=== PATIENT | female | born 1960 | race Caucasian/White ===

== ENCOUNTER → 2018-09-02 | Outpatient (CLI) | payer MEDICARE, OTHER ==
--- NOTE | 2018-09-02 10:17 | RAD ---
EXAM: Right hand, 2 views. HISTORY: Blunt trauma. COMPARISON: None. FINDINGS: 2 views of the right hand are obtained. There is no fracture, dislocation or subluxation. There is no radiodense foreign body. There is minimal spurring at the base of the first metacarpal. IMPRESSION: No acute osseous finding. Electronically signed by: Elizabeth Pack MD (09/02/2018 10:14 AM) [id number]
== END | disposition home or self-care (01) ==
LOC: RAD 09:50
PROVIDERS: ATTEND Registered Nurse
DX: S69.90XA Unspecified injury of unspecified wrist, hand and finger(s), initial encounter (principal); X58.XXXA Exposure to other specified factors, initial encounter; Y93.89 Activity, other specified; Y92.89 Other specified places as the place of occurrence of the external cause; Y99.8 Other external cause status
CPT/HCPCS: 73120

== ENCOUNTER → 2018-11-07 | Outpatient (CLI) | payer MEDICARE, OTHER ==
[2018-11-07] MEDS: IOHEXOL 300 MG/ML 75 ML VIAL. IV ONE (08:40)
--- NOTE | 2018-11-07 12:59 | RAD ---
CT CHEST W/CONTRAST Indication: Chest pain, dysphagia Technique: Postcontrast CT imaging was performed of the chest, multiplanar reconstruction images submitted. One or more of the following individualized dose reduction techniques were utilized for this examination: 1. Automated exposure control 2. Adjustment of the mA and/or kV according to patient size 3. Use of iterative reconstruction technique. Comparison: None Findings: There is very small sliding hiatal hernia, nonspecific mild wall thickening of involved segment. Esophagus is not significantly dilated. There are some small mediastinal and axillary nodes, no significantly enlarged nodes identified of the chest. There is no pericardial or pleural fluid, pneumothorax, significant infiltrate. Major airways are patent. 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 There is mild smooth thoracic dextroscoliosis. Heterogeneity of the spleen is probably due to differential in perfusion during exam. IMPRESSION: 1. There is very small sliding hiatal hernia, nonspecific mild wall thickening of distal segment which could be due to mild esophagitis although nonspecific. Electronically signed by: Ramos Mark MD (11/07/2018 12:56 PM) [id number]
== END | disposition home or self-care (01) ==
LOC: CT 08:16
PROVIDERS: ATTEND Internal Medicine Gastroenterology
DX: K44.9 Diaphragmatic hernia without obstruction or gangrene (principal); J98.59 Other diseases of mediastinum, not elsewhere classified; M51.34 Other intervertebral disc degeneration, thoracic region; M47.814 Spondylosis without myelopathy or radiculopathy, thoracic region
CPT/HCPCS: 71260; Q9967

== ENCOUNTER → 2019-01-06 | Outpatient (CLI) | payer MEDICARE, OTHER ==
--- NOTE | 2019-01-21 09:56 | RAD ---
DATE: 01/06/2019 1:00 PM EXAM: MAMMO RADHA SCREENING BILATERAL HISTORY: routine screening evaluation. COMPARISON: 01/06/2019, 08/17/2016 Bilateral CC and MLO views of the breasts were performed. Bilateral breast tomosynthesis was performed in CC and MLO projections. This study was interpreted with the benefit of Computerized Aided Detection (CAD). FINDINGS: Breast Density: DENSE The breast Parenchyma is dense, which could reduce the sensitivity of mammography. Breast parenchyma level density D. Benign calcifications are present. Multiple rounded nodular densities in the lower breasts bilaterally are seen. No suspicious microcalcifications or architectural distortion is present in either breast. The visualized axillae are unremarkable. IMPRESSION: Bilateral breast masses as above, findings for which additional imaging is advised. BI-RADS CATEGORY: 0 INCOMPLETE: NEEDS ADDITIONAL IMAGING EVALUATION AND/OR PRIOR MAMMOGRAMS FOR COMPARISON. RECOMMENDED FOLLOW-UP: ADD ADDITIONAL IMAGING. Spot compression and ultrasound of both breasts is recommended PQRS compliance statement: Patient information was entered into a reminder system with a target due date for the next mammogram. Mammography is a sensitive method for finding small breast cancers, but it does not detect them all and is not a substitute for careful clinical examination. A negative mammogram does not negate a clinically suspicious finding and should not result in delay in biopsying a clinically suspicious abnormality. "Our facility is accredited by the [employer] Mammography [employer]."
== END | disposition home or self-care (01) ==
LOC: MAMMO 12:51
PROVIDERS: ATTEND Registered Nurse
DX: Z12.31 Encounter for screening mammogram for malignant neoplasm of breast (principal); N63.10 Unspecified lump in the right breast, unspecified quadrant; N63.20 Unspecified lump in the left breast, unspecified quadrant
CPT/HCPCS: 77063; 77067

== ENCOUNTER → 2019-02-07 | Outpatient (CLI) | payer MEDICARE, OTHER ==
--- NOTE | 2019-02-07 14:32 | RAD ---
Examination: DIGITAL DIAGNOSTIC BILATERAL, BREAST RIGHT HISTORY: Abnormal mammogram. COMPARISON: 12/30/2018 screening mammogram BREAST PARENCHYMAL DENSITY: Scattered fibroid glandular densities. FINDINGS: Spot compression imaging bilaterally was performed at the lower breast region. There is no persistent asymmetry involving the left breast. Persistence of masses noted on spot compression imaging of the right lower breast. Ultrasound imaging of the right lower breast was performed. At the 6:00 region 2 cm from nipple, there is a cyst measuring up to 0.4 cm diameter. At the 7:00 region 3.5 cm from nipple, there is a 1 cm x 0.9 cm x 0.6 cm cyst present. Cluster of cysts or septated cyst is present at the proximal region 4 cm from nipple measuring 0.8 cm x 0.6 cm x 0.5 cm tall. There is no flow identified to involve the cysts. IMPRESSION: BI-RADS Category 3-probably benign. Six-month follow-up ultrasound exam is recommended to assess. Note is made that dense breast parenchyma limits the sensitivity of mammography. Mammography is a sensitive method for finding small breast cancers, but it does not detect them all and is not a substitute for careful clinical examination. A negative mammogram does not negate a clinically suspicious finding and should not result in delay in biopsying a clinically suspicious abnormality. PQRS compliance statement - Patient information was entered into a reminder system with a target due date for the next mammogram. "Our facility is accreditied by the [employer] Mammography Program." Electronically signed by: Javy Pinon MD (02/07/2019 2:29 PM) [facility]
== END | disposition home or self-care (01) ==
LOC: MAMMO 13:15
PROVIDERS: ATTEND Registered Nurse
DX: N60.01 Solitary cyst of right breast (principal)
CPT/HCPCS: 76641; 77066

== ENCOUNTER → 2019-06-20 | Outpatient (CLI) | payer MEDICARE, OTHER ==
[~2019-06-20] VITALS: Ht 165.1 cm; Wt 57.5 kg
[~2019-06-20] MED LIST: NORMAL SALINE IV ONE; SINCALIDE 1.15 MCG in IV NORMAL SALINE 50ML 30 ML IV ONE; SINCALIDE IV ONE
--- NOTE | 2019-06-20 09:27 | RAD ---
Examination: ABDOMEN LTD History: Right upper quadrant pain Comparison/Correlation: 05/30/2019 CT abdomen and pelvis with contrast Findings: Limited right upper quadrant ultrasound exam was performed. Hepatic echotexture is normal. Gallbladder is unremarkable. Liver length is within normal limits. Portal venous flow is unremarkable. Common bile duct unremarkable. No biliary dilatation. Right kidney measures 10 cm longitudinal. No right hydronephrosis. Normal renal contour and echotexture. Portal vein is normal. Distal pancreas is obscured by bowel gas. Inferior vena cava is unremarkable. No right upper quadrant ascites. Impression: Normal right upper quadrant ultrasound exam. Electronically signed by: Javy Pinon MD (06/20/2019 9:24 AM) [facility]
--- NOTE | 2019-06-20 11:15 | RAD ---
EXAM: HEPATOBILIARY SCINTIGRAPHY WITH GALLBLADDER EJECTION FRACTION CALCULATION. HISTORY: Abdominal pain, reflux. TECHNIQUE: 5.4 mCi technetium-99m Choletec were administered intravenously and scintigraphic images of the abdomen obtained. After filling of the gallbladder, 2 mcg of sincalide were infused and the gallbladder ejection fraction calculated. FINDINGS: There is prompt hepatic clearance of tracer from the blood pool. There is homogeneous distribution throughout the liver. There is normal filling of the gallbladder and clearance into the biliary tree and small bowel. The gallbladder ejection fraction is 7% (normal >35%). IMPRESSION: 1. Decreased gallbladder ejection fraction suggesting biliary dyskinesia. Electronically signed by: Mary Kenyon MD (06/20/2019 11:12 AM) [id number]
== END | disposition home or self-care (01) ==
LOC: US 07:40
PROVIDERS: ATTEND Internal Medicine Gastroenterology
DX: K21.9 Gastro-esophageal reflux disease without esophagitis (principal); R10.9 Unspecified abdominal pain; R12 Heartburn; K59.00 Constipation, unspecified
CPT/HCPCS: 76705; 78227; A9537; J2805

== ENCOUNTER → 2019-07-17 | Outpatient (CLI) | payer MEDICARE, OTHER ==
[~2019-07-17] MED LIST changes: +IOHEXOL 300 MG/ML 75 ML VIAL. IV ONE; -NORMAL SALINE IV ONE; -SINCALIDE 1.15 MCG in IV NORMAL SALINE 50ML 30 ML IV ONE; -SINCALIDE IV ONE
--- NOTE | 2019-07-17 15:26 | RAD ---
CT of the abdomen and pelvis with contrast 07/17/2019 INDICATION: Abdominal pain following recent cholecystectomy. COMPARISON STUDY: CT of the abdomen and pelvis with contrast June 02, 2019. TECHNIQUE: Multidetector CT imaging of the abdomen and pelvis was performed following the administration of IV contrast FINDINGS: The lung bases are clear. Postsurgical changes following cholecystectomy noted. Small cyst in the right liver is unchanged. The gallbladder fossa demonstrates no hematoma or other abnormal fluid or gas collection. The remaining solid viscera of the abdomen are unremarkable in appearance. No bowel obstruction is seen. No pneumoperitoneum is identified. No significant free abdominal or pelvic fluid is seen. Scant fluid seen in the pelvis most likely physiologic, or postsurgical in nature. Visualized bladder is grossly unremarkable. There is no anterior abdominal wall hematoma. Laparoscopic access sites, are barely visible. No acute osseous abnormality is identified. IMPRESSION: 1. No evidence of acute intra-abdominal abnormality 2. Expected findings following recent cholecystectomy CT DOSING PQRS STATEMENT: One or more of the following individualized dose reduction techniques were utilized for this examination: 1. Automated exposure control 2. Adjustment of the mA and/or kV according to patient size 3. Use of iterative reconstruction technique Electronically signed by: Deonte Seth MD (07/17/2019 3:23 PM) [id number]
== END | disposition home or self-care (01) ==
LOC: CT 14:32
PROVIDERS: ATTEND Surgery
DX: R10.9 Unspecified abdominal pain (principal); Z90.49 Acquired absence of other specified parts of digestive tract
CPT/HCPCS: 74177; Q9967

== ENCOUNTER → 2019-10-07 | Outpatient (CLI) | payer MEDICARE, OTHER ==
--- NOTE | 2019-10-07 15:22 | RAD ---
Examination: Limited right breast ultrasound. INDICATION: Patient presents for six-month follow-up probably benign cyst in the right breast. She also reported recently noticing a tennis ball size lump in her right breast that has since reduced in size. COMPARISON: Bilateral screening mammograms of 08/17/2016, 01/06/2019, bilateral diagnostic mammogram and right breast ultrasound of 02/07/2019. TECHNIQUE: Grayscale and color Doppler imaging of the right breast in the area of patient reported clinical concern. FINDINGS: A circumscribed sonographically benign 1.2 cm cyst at the right 7:00 position 3 cm from the nipple represents the dominant finding in the right breast and is marginally larger than on the previous examination where it previously measured 9 mm. Adjacent to this is an oval 8mm nodule with echogenic reflectors compatible with calcifications. In correlation with the previous mammograms multiple years, this is favored to represent a benign etiology. IMPRESSION: Benign findings on targeted right breast ultrasound. No findings suspicious for malignancy. Management should be on a clinical basis with biopsy of any clinically suspicious findings if considered present in the opinion of the patient's referring provider. In the absence of any clinically suspicious findings, return to routine mammographic screening next due after January 07, 2020 is recommended. BI-RADS Category 2: Benign. Recommend clinical management, with biopsy of any clinically suspicious findings if present and otherwise return to screening in the absence of any clinically suspicious findings. BI-RADS 2 -- benign findings
== END | disposition home or self-care (01) ==
LOC: US 13:34
PROVIDERS: ATTEND Physician Assistant Medical
DX: N60.01 Solitary cyst of right breast (principal); R92.1 Mammographic calcification found on diagnostic imaging of breast
CPT/HCPCS: 76641